=== PATIENT | female | born 1955 | race Native Hawaiian/Other Pacific Islander ===

== ENCOUNTER 2018-02-03 07:25 | Outpatient (CLI) | payer OTHER ==
--- NOTE | 2018-02-04 16:53 | MRI Report ---
Reason: R SHOULDER STRAIN Procedure Date: 02/03/2018 Accession Number: [id number] / [id number] Procedure: MRI - Shoulder RT W/O CPT Code: FULL RESULT: EXAM: RIGHT SHOULDER MRI WITHOUT CONTRAST EXAM DATE: 02/03/2018 09:02 AM. CLINICAL HISTORY: Right shoulder strain worsening after physical therapy. COMPARISON: None. TECHNIQUE: Multiplanar, multisequence T1-weighted and fluid-sensitive sequences of the shoulder without contrast. Other: None. FINDINGS: Acromioclavicular Region: The acromion is type II with anterior downsloping. The acromioclavicular joint is unremarkable. The coracoacromial and coracoclavicular ligaments are intact. A minimal amount of fluid is in the subacromial/subdeltoid bursa. Glenohumeral Region: No subluxation. No effusion or loose bodies. The articular cartilage is unremarkable. The glenohumeral ligaments and joint capsule are unremarkable. Bone Marrow: No fracture, marrow edema or bone lesions. Labrum: The labrum is unremarkable on this nonarthrographic study. Musculature/Rotator Cuff: The subscapularis tendon is unremarkable. The supraspinatus tendon has mild bursal sided irregularity and mild increased T2 signal. Infraspinatus and teres minor tendons are intact. No edema or fatty atrophy. Biceps Tendon: The long head of the biceps tendon and biceps bell are intact. Other: The subcutaneous tissues are unremarkable. IMPRESSION: 1. Minimal subacromial/subdeltoid bursitis. 2. Mild supraspinatus tendinosis. [facility] MUSCULOSKELETAL RADIOLOGY SECTION
== END 2018-02-03 07:26 | disposition home or self-care (01) ==
LOC: DI 07:25
PROVIDERS: ATTEND Family Medicine
DX: S46.911A Strain of unspecified muscle, fascia and tendon at shoulder and upper arm level, right arm, initial encounter (principal); M75.51 Bursitis of right shoulder; M67.813 Other specified disorders of tendon, right shoulder

== ENCOUNTER 2019-02-16 17:48 | Outpatient (CLI) | payer OTHER | END 2019-02-16 17:49 | disposition short-term general hospital (02) | LOC: EMS 17:48 | PROVIDERS: ATTEND Surgery | DX: R07.9 Chest pain, unspecified (principal) | CPT/HCPCS: A0425; A0427 ==

== ENCOUNTER 2019-12-10 08:43 | Outpatient (CLI) | payer OTHER | END 2019-12-10 08:44 | disposition critical access hospital (66) | LOC: EMS 08:43 | PROVIDERS: ATTEND Surgery | DX: R07.9 Chest pain, unspecified (principal); R20.0 Anesthesia of skin; R42 Dizziness and giddiness; R51.9 Headache, unspecified | CPT/HCPCS: A0425; A0427 ==

== ENCOUNTER 2019-12-10 08:56 | Emergency (ER) | payer OTHER ==
--- NOTE | 2019-12-10 09:21 | ED Physician Documentation ---
PD HPI CHEST PAIN - Stated complaint Stated Complaint: R ARM NUMBNESS - Chief complaint Chief Complaint: Cardiac - History obtained from History obtained from: Patient - History of Present Illness Timing - onset: How many hours ago (2), Today (this morning) Timing - onset during: Rest Timing - details: Abrupt onset (onset of pain right forearm, worse with gripping of hand, but starts in shoulder area. No chest pain, but was concerned about heart related.), Still present Quality: Aching, Pain Location: Right shoulder/arm. No: Substernal Radiation: Neck. No: Back Improved by: No: Rest Worsened by: Movement. No: Exertion, Inspiration Associated symptoms: Feeling faint / dizzy. No: Shortness of air, Diaphoresis, Nausea, Palpitations Similar symptoms before: Has not had sx before Recently seen: Clinic (seen by Cardiology few days ago and new Rx she started yesterday of Amlodipine and Imdur for symptoms of chest pressure intermittently (nonexertional)) Review of Systems Constitutional: denies: Fever, Chills Nose: denies: Rhinorrhea / runny nose, Congestion Throat: denies: Sore throat Cardiac: denies: Chest pain / pressure (just the right shoulder to forearm.), Palpitations Respiratory: denies: Dyspnea, Cough GI: denies: Abdominal Pain, Nausea, Vomiting Neurologic: denies: Focal weakness, Numbness, Headache PD PAST MEDICAL HISTORY - Past Medical History Cardiovascular: CT (had chest pain with elevated troponin last year, but nonocclusive vessels on heart cath. Rx with meds. 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 - Present Medications Home Medications: Ambulatory Orders Medication Instructions Recorded Confirmed ALPRAZolam [Alprazolam] 0.25 mg PO DAILY PRN 12/10/19 12/10/19 Escitalopram [Lexapro] 20 mg PO DAILY 12/10/19 12/10/19 Isosorbide Mononitrate ER [Imdur] 30 mg PO DAILY PM 12/10/19 12/10/19 Nitroglycerin 0.4 mg SL ONCE PRN 12/10/19 12/10/19 Propranolol HCl 20 mg PO QID 12/10/19 12/10/19 Trazodone HCl 50 mg PO DAILY PM 12/10/19 12/10/19 amLODIPine [Norvasc] 2.5 mg PO DAILY 12/10/19 12/10/19 - Allergies Allergies/Adverse Reactions: Allergies Allergy/AdvReac Type Severity Reaction Status Date / Time tramadol Allergy Anxiety Verified 12/10/19 09:01 PD ED PE NORMAL - Vitals Vital signs reviewed: Yes - General General: Alert and oriented X 3, Well developed/nourished, Other (appears in pain right forearm (was not in pain on arrival at time of first ECG, so repeated it now with pain in arm).) - Neck Neck: Supple, no meningeal sign, No bony TTP, No adenopathy - Cardiac Cardiac: RRR, Other (1/6 murmur anterior chest radiating to back. ) - Respiratory Respiratory: Clear bilaterally - Abdomen Abdomen: Soft, Non tender - Derm Derm: Normal color, Warm and dry - Extremities Extremities: No tenderness to palpate, Normal ROM s pain, No edema, No calf tenderness / cord, Other (right forearm and shoulder with some anterior shoulder tenderness but no limited ROM. Forearm itself is not tender. ) - Neuro Neuro: Alert and oriented X 3, No motor deficit, Normal speech Results - Vitals Vitals: Vital Signs - 24 hr 12/10/19 12/10/19 12/10/19 09:02 11:09 11:11 Temperature 37 C Heart Rate 60 60 61 Respiratory 18 15 11 L Rate Blood Pressure 194/84 H 171/65 H 171/65 H O2 Saturation 97 96 96 12/10/19 11:52 Temperature 37.2 C Heart Rate 63 Respiratory 18 Rate Blood Pressure 146/66 H O2 Saturation 100 Oxygen O2 Source Room air - EKG (time done) 09:05 Rate: Rate (enter#) (59) Rhythm: NSR [place]: Normal Intervals: Normal [place] QRS: Normal Ischemia: Normal ST segments. No: ST elevation c/w ischemia, ST depression 09:46 Rate: Rate (enter#) (59) Rhythm: NSR [place]: Normal Intervals: Normal [place] QRS: Normal Ischemia: Normal ST segments. No: ST elevation c/w ischemia, ST depression Compare to prior EKG: Unchanged from prior EKG - Labs Labs: Laboratory Tests 12/10/19 12/10/19 12/10/19 10:03 10:03 10:03 WBC 9.9 RBC 4.47 Hgb 13.5 Hct 41.3 MCV 92.4 MCH 30.2 MCHC 32.7 RDW 14.6 Plt Count 210 MPV 9.8 Neut # (Auto) 7.3 H Lymph # (Auto) 1.7 [place] # (Auto) 0.7 Eos # (Auto) 0.1 Baso # (Auto) 0.1 Absolute Nucleated RBC 0.00 Nucleated RBC % 0.0 Sodium 137 Potassium 4.0 Chloride 106 Carbon Dioxide 21 Anion Gap 10.0 BUN 11 Creatinine 0.7 Estimated GFR (MDRD) 84 L Glucose 108 H Calcium 9.1 Total Bilirubin 0.7 AST 15 ALT 11 Alkaline Phosphatase 96 Troponin I High Sens 5.1 Total Protein 7.3 Albumin 3.8 Globulin 3.5 Albumin/Globulin Ratio 1.1 Lipase 23 - Rads (name of study) chest xray Radiology: Prelim report reviewed (normal), See rad report PD MEDICAL DECISION MAKING - ED course Complexity details: considered differential, d/w patient Departure - Departure Disposition: 01 Home, Self Care Clinical Impression: Right arm pain Condition: Stable Record reviewed to determine appropriate education?: Yes Follow-Up: Conrad Adams DO [Primary Care Provider] - Chelsea Funez MD [Physician No Access] - Comments: No signs of heart attack or a heart cause of your pain. Presume more musculoskeletal. Consider using some naproxen or ibuprofen twice daily for the next several days. Add Tylenol if needed for pain. Regarding your new blood pressure medicines, I would hold off on the amlodipine and just take the Imdur as prescribed for now. You can add on the amlodipine a week from now or so. Check your blood pressures every day or 2 over the next week to make sure they do not get too low. Follow-up with your primary care. I did talk with Dr. Clark while this morning and he was reassured by your normal EKG and troponin blood test. Discharge Date/Time: 12/10/19 11:52
[2019-12-10] MEDS ORDERED: MORPHINE 2 MG/ML CARPUJECT IVP STA (09:48)
[2019-12-10 10:07] LABS: BASOPHILS # (AUTO) 0.1 10^3/uL (0.0-0.1); BASOPHILS % (AUTO) 0.5 %; EOSINOPHILS # (AUTO) 0.1 10^3/uL (0.0-0.7); EOSINOPHILS % (AUTO) 0.8 %; HGB - HEMOGLOBIN 13.5 g/dL (12.0-16.0); LYMPHOCYTES # (AUTO) 1.7 10^3/uL (1.5-3.5); LYMPHOCYTES % (AUTO) 17.6 %; MEAN CORPUSCULAR HEMOGLOBIN 30.2 pg (27.0-31.0); MEAN CORPUSCULAR HGB CONC 32.7 g/dL (32.0-36.0); MEAN CORPUSCULAR VOLUME 92.4 fL (81.0-99.0); MEAN PLATELET VOLUME 9.8 fL (7.9-10.8); MONOCYTES # (AUTO) 0.7 10^3/uL (0.0-1.0); MONOCYTES % (AUTO) 7.1 %; NEUTROPHILS # (AUTO) 7.3 10^3/uL (1.5-6.6); NEUTROPHILS % (AUTO) 73.6 %; PLT - PLATELET COUNT 210 10^3/uL (130-450); RED BLOOD COUNT 4.47 10^6/uL (4.20-5.40); RED CELL DISTRIBUTION WIDTH 14.6 % (12.0-15.0); WHITE BLOOD COUNT 9.9 x10^3/uL (4.8-10.8)
--- NOTE | 2019-12-10 10:13 | XRAY Report ---
PROCEDURE: Chest 1 View X-Ray INDICATIONS: Chest pain TECHNIQUE: One view of the chest was acquired. COMPARISON: None FINDINGS: Surgical changes and devices: None. Lungs and pleura: No pleural effusions or pneumothorax. Lungs are clear. Mediastinum: Mediastinal contours appear normal. Heart size is normal. Bones and chest wall: No suspicious bony lesions. Overlying soft tissues appear unremarkable. IMPRESSION: Normal chest radiographs. Reviewed by: Eugene Mckeon MD on 12/10/2019 10:12 AM PDT Approved by: Eugene Mckeon MD on 12/10/2019 10:12 AM PDT Station ID: [id number]
[2019-12-10 10:20] LABS: ALBUMIN 3.8 g/dL (3.2-5.5); ALBUMIN/GLOBULIN RATIO 1.1 (1.0-2.2); BILIRUBIN,TOTAL 0.7 mg/dL (0.2-1.0); CALCIUM 9.1 mg/dL (8.5-10.3); CREATININE 0.7 mg/dL (0.4-1.0); TOTAL PROTEIN 7.3 g/dL (6.7-8.2)
[2019-12-10] MEDS ORDERED: ACETAMINOPHEN 325 MG TABLET PO STA (11:05)
[2019-12-10 11:53] VITALS: BP 146/66
== END 2019-12-10 11:52 | disposition home or self-care (01) ==
LOC: EDUNIT# → ED 08:56
DX: M79.631 Pain in right forearm (principal); M25.511 Pain in right shoulder; R01.1 Cardiac murmur, unspecified; I25.2 Old myocardial infarction
CPT/HCPCS: 36415; 71045; 80053; 83690; 84484; 85025; 93005; 99284; A9270

== ENCOUNTER 2020-05-01 06:22 | Emergency (ER) | payer MEDICARE, OTHER ==
[2020-05-01 07:41] LABS: BASOPHILS % (AUTO) 0.5 %; EOSINOPHILS # (AUTO) 0.1 10^3/uL (0.0-0.7); EOSINOPHILS % (AUTO) 1.3 %; HCT - HEMATOCRIT 40.5 % (37.0-47.0); HGB - HEMOGLOBIN 13.4 g/dL (12.0-16.0); LYMPHOCYTES # (AUTO) 2.3 10^3/uL (1.5-3.5); LYMPHOCYTES % (AUTO) 31.5 %; MEAN CORPUSCULAR HEMOGLOBIN 30.6 pg (27.0-31.0); MEAN CORPUSCULAR HGB CONC 33.1 g/dL (32.0-36.0); MEAN CORPUSCULAR VOLUME 92.5 fL (81.0-99.0); MEAN PLATELET VOLUME 10.4 fL (7.9-10.8); MONOCYTES # (AUTO) 0.6 10^3/uL (0.0-1.0); MONOCYTES % (AUTO) 8.3 %; NEUTROPHILS # (AUTO) 4.3 10^3/uL (1.5-6.6); PLT - PLATELET COUNT 211 10^3/uL (130-450); RED BLOOD COUNT 4.38 10^6/uL (4.20-5.40); RED CELL DISTRIBUTION WIDTH 14.1 % (12.0-15.0); WHITE BLOOD COUNT 7.4 x10^3/uL (4.8-10.8)
[2020-05-01 07:57] LABS: BILIRUBIN,URINE NEGATIVE (NEGATIVE); GLUCOSE, URINE (UA) NEGATIVE (NEGATIVE); KETONES,URINE (UA) NEGATIVE (NEGATIVE); LEUKOCYTE ESTERASE, URINE SMALL (NEGATIVE); NITRITE,URINE NEGATIVE (NEGATIVE); OCCULT BLOOD,URINE SMALL (NEGATIVE); PH,URINE 7.5 PH (5.0-7.5); PROTEIN,URINE NEGATIVE (NEGATIVE); UROBILINOGEN,URINE 0.2 (NORMAL) E.U./dL (NORMAL)
[2020-05-01 07:57] LABS: ALBUMIN 3.7 g/dL (3.2-5.5); ALBUMIN/GLOBULIN RATIO 1.1 (1.0-2.2); BILIRUBIN,TOTAL 0.6 mg/dL (0.2-1.0); CREATININE 0.7 mg/dL (0.4-1.0); POTASSIUM 3.7 mmol/L (3.5-5.0); TOTAL PROTEIN 7.2 g/dL (6.7-8.2)
[2020-05-01 08:02] LABS: CLARITY,URINE CLEAR (CLEAR)
[2020-05-01 08:24] LABS: BACTERIA,URINE Rare /HPF (None Seen); RBC,URINE 0-5 /HPF (0-5); SQUAMOUS EPITHELIAL CELL,UR FEW Squamous (<= Few); WBC,URINE 0-3 /HPF (0-5)
--- NOTE | 2020-05-01 08:34 | ED Physician Documentation ---
PD HPI CHEST PAIN - Stated complaint Stated Complaint: CHEST PX/HIGH BP - Chief complaint Chief Complaint: Cardiac - History obtained from History obtained from: Patient - History of Present Illness Pain level max: 2 Pain level now: 0 Associated symptoms: Palpitations. No: Nausea, Vomiting, Feeling faint / dizzy, General Weakness Recently seen: Not recently seen - Additional information Additional information: 65-year-old female presents to the emergency department with chest pain i ntermittently for the last week. Does not seem to be related to exertion. Nothing makes it better or worse. Normally lasts for a few minutes at a time. No nausea or vomiting. No feeling faint or dizzy. She states it feels like a fluttering and sometimes a band. Nonradiating. It is across the anterior aspect of her chest. Patient states that she had a normal coronary angiogram within the last year. 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 She states that since that time she has had these symptoms intermittently. Patient states that she has been taking her usual medications. No fever. No cough. No recent travel. Review of Systems Ten Systems: 10 systems reviewed and negative Constitutional: denies: Fever Ears: denies: Ear pain Nose: denies: Rhinorrhea / runny nose, Congestion Throat: denies: Sore throat Cardiac: denies: Calf pain Respiratory: denies: Dyspnea, Cough, Hemoptysis, Wheezing GI: denies: Abdominal Pain, Nausea, Vomiting, Diarrhea Skin: denies: Rash Musculoskeletal: denies: Neck pain, Back pain Neurologic: denies: Headache PD PAST MEDICAL HISTORY - Past Medical History Past Medical History: Yes Cardiovascular: MS, Murmur Respiratory: None Neuro: None Endocrine/Autoimmune: None, HyPERthyroidism Psych: None Musculoskeletal: None - 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 - Present Medications Home Medications: Ambulatory Orders Medication Instructions Recorded Confirmed ALPRAZolam [Alprazolam] 0.25 mg PO DAILY PRN 12/10/19 12/10/19 Escitalopram [Lexapro] 20 mg PO DAILY 12/10/19 12/10/19 Isosorbide Mononitrate ER [Imdur] 30 mg PO DAILY PM 12/10/19 12/10/19 Nitroglycerin 0.4 mg SL ONCE PRN 12/10/19 12/10/19 Propranolol HCl 20 mg PO QID 12/10/19 12/10/19 Trazodone HCl 50 mg PO DAILY PM 12/10/19 12/10/19 amLODIPine [Norvasc] 2.5 mg PO DAILY 12/10/19 12/10/19 - Allergies Allergies/Adverse Reactions: Allergies Allergy/AdvReac Type Severity Reaction Status Date / Time methimazole Allergy Unknown Verified 05/01/20 06:38 tramadol Allergy Anxiety Verified 05/01/20 06:38 - Social History Does the pt smoke?: No Smoking Status: Never smoker PD ED PE NORMAL - Vitals Vital signs reviewed: Yes - General General: Alert and oriented X 3, No acute distress, Well developed/nourished - HEENT HEENT: PERRL, Moist mucous membranes - Neck Neck: Supple, no meningeal sign - Cardiac Cardiac: RRR, Strong equal pulses - Respiratory Respiratory: No respiratory distress, Clear bilaterally - Abdomen Abdomen: Soft, Non tender, Non distended - Derm Derm: Warm and dry - Extremities Extremities: No edema, No calf tenderness / cord - Neuro Neuro: Alert and oriented X 3 - Psych Psych: Normal mood, Normal affect Results - Vitals Vitals: Vital Signs - 24 hr 05/01/20 05/01/20 05/01/20 06:34 06:38 08:46 Temperature 98.7 C H 36.9 C Heart Rate 66 61 Respiratory 17 16 Rate Blood Pressure 151/82 H 150/64 H O2 Saturation 97 97 Oxygen O2 Source Room air - EKG (time done) 0626 Rate: Rate (enter#) (59) Rhythm: NSR [place]: Normal Intervals: Normal [place] QRS: Normal Ischemia: Normal ST segments Computer interpretation: Agree with computer - Labs Labs: Laboratory Tests 05/01/20 05/01/20 05/01/20 07:21 07:25 07:25 WBC 7.4 RBC 4.38 Hgb 13.4 Hct 40.5 MCV 92.5 MCH 30.6 MCHC 33.1 RDW 14.1 Plt Count 211 MPV 10.4 Neut # (Auto) 4.3 Lymph # (Auto) 2.3 [place] # (Auto) 0.6 Eos # (Auto) 0.1 Baso # (Auto) 0.0 Absolute Nucleated RBC 0.00 Nucleated RBC % 0.0 Sodium 137 Potassium 3.7 Chloride 103 Carbon Dioxide 23 Anion Gap 11.0 BUN 13 Creatinine 0.7 Estimated GFR (MDRD) 84 L Glucose 106 H Calcium 9.0 Total Bilirubin 0.6 AST 17 ALT 11 Alkaline Phosphatase 93 Troponin I High Sens Total Protein 7.2 Albumin 3.7 Globulin 3.5 Albumin/Globulin Ratio 1.1 Lipase 22 Urine Color YELLOW Urine Clarity CLEAR Urine pH 7.5 Ur Specific [place] 1.015 Urine Protein NEGATIVE Urine Glucose (UA) NEGATIVE Urine Ketones NEGATIVE Urine Occult Blood SMALL H Urine Nitrite NEGATIVE Urine Bilirubin NEGATIVE Urine Urobilinogen 0.2 (NORMAL) Ur Leukocyte Esterase SMALL H Urine RBC 0-5 Urine WBC 0-3 Ur Squamous Epith Cells FEW Squamous Urine Bacteria Rare Ur Microscopic Review INDICATED Urine Culture Comments INDICATED 05/01/20 07:25 WBC RBC Hgb Hct MCV MCH MCHC RDW Plt Count MPV Neut # (Auto) Lymph # (Auto) [place] # (Auto) Eos # (Auto) Baso # (Auto) Absolute Nucleated RBC Nucleated RBC % Sodium Potassium Chloride Carbon Dioxide Anion Gap BUN Creatinine Estimated GFR (MDRD) Glucose Calcium Total Bilirubin AST ALT Alkaline Phosphatase Troponin I High Sens 7.1 Total Protein Albumin Globulin Albumin/Globulin Ratio Lipase Urine Color Urine Clarity Urine pH Ur Specific [place] Urine Protein Urine Glucose (UA) Urine Ketones Urine Occult Blood Urine Nitrite Urine Bilirubin Urine Urobilinogen Ur Leukocyte Esterase Urine RBC Urine WBC Ur Squamous Epith Cells Urine Bacteria Ur Microscopic Review Urine Culture Comments - Rads (name of study) cxr Radiology: Prelim report reviewed, EMP read contemporaneously, See rad report (No acute pulmonary process. ) PD MEDICAL DECISION MAKING - ED course Complexity details: reviewed results, re-evaluated patient, considered differential (No ST elevation MS, no aortic dissection, no PE, no tension pneumothorax, no aortic aneurysm), d/w patient ED course: Patient is a 65-year-old female with intermittent chest pain for 1 week. Asymptomatic here. Nothing makes it better or worse. Patient is well- appearing, nontoxic. Afebrile. No evidence of PE, aortic dissection, pneumothorax. No acute findings on EKG, telemetry, laboratory testing. We will have her follow-up with her doctor for further care. Normal coronary angiogram within the last 12 months per patient. Patient counseled regarding signs and symptoms for which I believe and urgent re-evaluation would be necessary. Patient with good understanding of and agreement to plan and is comfortable going home at this time This document was made in part using voice recognition software. While efforts are made to proofread this document, sound alike and grammatical errors may occur. Departure - Departure Disposition: 01 Home, Self Care Clinical Impression: Chest pain Qualifiers: Chest pain type: unspecified Qualified Code(s): R07.9 - Chest pain, unspecified Condition: Good Instructions: ED Chest Pain Atypical Unkn Cause Follow-Up: Dashawn Corona MD [Primary Care Provider] - Within 3 Days Comments: The cause of your symptoms is unclear today. Please follow-up with your doctor for further care. Continue your current medications. Your heart test do not show a heart attack within the last week. Return if you worsen Discharge Date/Time: 05/01/20 08:49
[2020-05-01 08:47] VITALS: BP 150/64
--- NOTE | 2020-05-01 09:00 | XRAY Report ---
PROCEDURE: Chest 1 View X-Ray INDICATIONS: chest pain TECHNIQUE: One view of the chest was acquired. COMPARISON: Chest x-ray 12/10/2019 FINDINGS: Surgical changes and devices: None. Lungs and pleura: No pleural effusions or pneumothorax. Lungs are clear. Mediastinum: Mediastinal contours appear normal. Heart size is at the upper limits of normal in siz e. Bones and chest wall: No suspicious bony lesions. Overlying soft tissues appear unremarkable. IMPRESSION: No acute pulmonary process. Reviewed by: Opal Chu MD on 05/01/2020 8:59 AM [facility] Approved by: Opal Chu MD on 05/01/2020 8:59 AM [facility] Station ID: [id number]
== END 2020-05-01 08:49 | disposition home or self-care (01) ==
LOC: ED 06:22
DX: R07.9 Chest pain, unspecified (principal)
CPT/HCPCS: 36415; 80053; 81001; 81003; 83690; 84484; 85025; 87086; 93005; 99284

== ENCOUNTER 2020-06-22 10:14 | Outpatient (CLI) | payer MEDICARE, OTHER ==
[2020-06-24] VITALS: BP 143/70
--- NOTE | 2020-06-24 00:01 | SLEEP CARE CONSULTATION ---
Information from patient questionnaire entered by Abhijeet Dodson. I have reviewed and concur with the information entered by Abhijeet Dodson. This document represents the service I personally performed and the decisions made by me, Carmen Olmstead MD, [facility]. History of Present Illness Service Date and Time: 06/22/2020 1014 Reason for Visit: New patient, sleep apnea on CPAP therapy Chief Complaint: reports: Other (Sleep apnea) Date of Onset: 20 + years Usual bedtime: 7-8 Time it takes to fall asleep: Not sure I'm asleep Snores at night: No Observed to quit breathing while asleep: No Sleeps alone due to snoring: No Reasons for waking at night: reports: Bathroom, Other (For my brain to tell my body to breathe) Toss, Turn, or Twitch while sleeping: No Recalls having dreams: No Usually gets out of bed at: 6-7 AM Feels refreshed in the morning: No Morning headache: No Sleepy or fatigued during the day: Yes Ever fallen asleep while driving: No Takes day naps: Yes Dreams during day naps: No Prior sleep studies: Yes Year and Where: December 2019 and February 2020 in [place] Additional HPI information: I had the pleasure of seeing Ms. Mcdermott today regarding obstructive sleep apnea- hypopnea. As you know, she is a 65 year old gentleman who was diagnosed with the sleep-disordered breathing at [facility] in 01/2020. The AHI was 5.4. She was prescribed a CPAP device set at 10 13 cm. She uses the ResMed AirSense 10 device every night and all night. The compliance data show usage in 30 out of the 30 nights between 04/10 and 05/09/2020, averaging 7.1 hours a night. The residual AHI is 3.3 and average air leak is 5 L/minute. She initially was fitted with a ResMed F30i full face mask size SW. However, the durable medical supplier has not been able to get her the same mask. She was sent Respironics DreamWear full face mask, ResMed AirTouch F-20 full face mask, and Respironics DreamWear nasal cushion mask, none of the fitting correctly. [facility] is her supplier. She finds the treatment beneficial when she could use the device all night. She also complains of insomnia where she lies awake for about 4 hours a night. She takes trazodone around 6 pm to go to sleep between 7 8 am. She does not get out of bed until 6 7 am. 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 Patient is and lives in [place]. Have you smoked in the past 12 months: No Alcohol use: Yes Alcohol amount and frequency: 2-3 glasses a week Caffeine use: No Allergies and Home Medications Drug allergies reviewed: Yes Home medication list reviewed: Yes Review of Systems Weight gain over past 5 years: 30 Cardiovascular: denies: high blood pressure, palpitations, chest pain, irregular heart rate or pulse, leg or foot swelling, have to sleep sitting up, other Respiratory: denies: shortness of breath, wheeze, sputum production, chronic co ugh, other Gastrointestinal: denies: heartburn, difficulty swallowing, nausea, vomitting, diarrhea, abdominal pain, other Urinary: denies: incontinence, frequency, urgency, impotence, other Neurological: denies: headaches, seizure, head trauma, disorientation, speech dysfunction, gait or balance problems, fainting or unconsciousness, other Physical Exam Blood Pressure: 143/70 Cuff size: regular Heart Rate: 67 O2 Saturation: 97 Height: 5 ft 5 in Weight: 180 lb Body Mass Index: 29.9 BMI Classification: Overweight Neck circumference: 14.5 Mood/affect: tenisha HEENT: No craniofacial malformation Impression and Plan IMPRESSION: 1. Obstructive Sleep Apnea-Hypopnea Syndrome, mild as previously diagnosed. The patient has good treatment compliance. The current pressure setting appears effective and comfortable. The patient is uncomfortable with her present mask. I showed her several other styles. She is interested in nasal pillows. She would like to switch durable medical supplier. 2. Insomnia, due to excessive time spent in bed of 12 hours a night. The patient was advised to limit time spent in bed to not more than 8 hours. Plan: 1. Prescription made for supplies specifying nasal pillows. 2. Avoid long distance driving or when feeling sleepy. 3. Avoid alcohol, sedative and muscle relaxant around bedtime. 4. Maintain a regular wake up time and spend no more than 8 hours in bed at night. Avoid naps. Visit Type: In Office Time Spent with Patient (minutes): 30 Provider Statement: I spent 100% of the Face to Face Visit with the patient with greater than 50% spent counseling the patient and coordination of care.
== END 2020-06-22 10:15 | disposition home or self-care (01) ==
LOC: SC 10:14
PROVIDERS: ATTEND Internal Medicine Pulmonary Disease
DX: G47.33 Obstructive sleep apnea (adult) (pediatric) (principal); E66.3 Overweight; Z68.29 Body mass index [BMI] 29.0-29.9, adult
CPT/HCPCS: 99202; G0463; 99212

== ENCOUNTER 2020-08-03 09:05 | Outpatient (CLI) | payer MEDICARE, OTHER ==
--- NOTE | 2020-08-12 11:56 | SLEEP CARE CONSULTATION ---
Information from patient questionnaire entered by Rivka Kovacs. I have reviewed and concur with the information entered by Rivka Kovacs. This document represents the service I personally performed and the decisions made by me, Carmen Olmstead MD, [facility]. History of Present Illness Service Date and Time: 08/03/2020904 Previous diagnosis: Mild, Obstructive Sleep Apnea-Hypopnea Syndrome AHI: 5.4 (in 2019) Reason for follow up: other (6 week ) Equipment type: CPAP Equipment obtained from: [employer] Mask style: Nasal Prior sleep studies: Yes Year and Where: [address] [place] [address] Sleep HPI additional information: HPI: Ms. Mcdermott returned today for follow up of nasal CPAP therapy. She was diagnosed to have very mild obstructive sleep apnea-hypopnea syndrome. The patient went to [facility] for the equipment and was fitted with a nasal mask (she is not certain which kind but a month ago she had me order her the ResMed P30i nasal pillows which she has not received).. She reports using the device occasionally and not all through the night. The compliance report shows usage in 24 nights out of the past 42 nights, averaging 3.5 hours a night. She complained of her mask not fitting right but no particular problem with the device such as soreness on the face, dry nose, epistaxis, nasal congestion or headache. She thinks that the pressure of 10 - 16 cmH2O is comfortable. On the CPAP therapy she notices improvement in her sleep quality, and that she wakes up feeling fresher in the morning and more awake/alert during the day. The [place] Sleepiness Scale score 11. Her notices no snore at all. The average residual AHI is 4.4; and air leak, 0.4 L/min. The 90th percentile pressure is 11.9 cmH2O. CPAP Compliance Data - Data Reviewed with Patient Average duration of nightly device use: 3 hr 29 min Compliance rate %: 14 (42 days) Current pressure setting (cmH2O): 10-16 Humidity settin Average residual AHI: 4.4 Subjective Missed days of use due to: reports: other (didn't get mask) Initial [place] Sleepiness Scale score: 5 (in 2020) Current [place] Sleepiness Scale score: 11 Allergies and Home Medications Drug allergies reviewed: Yes Home medication list reviewed: Yes Review of Systems Review of systems same as previous: Yes Physical Exam Height: 5 ft 5 in Weight: 180 lb Body Mass Index: 29.9 BMI Classification: Overweight Impression and Plan IMPRESSION: 1. Obstructive Sleep Apnea-Hypopnea Syndrome, very mild (AHI was 5.4 at [facility]), with the patient having [id number] compliance due to mask not fitting well. The current pressure appears effective and comfortable. Overall, she is very satisfied with treatment and plans to contin ue with it long-term. The patient continue to wait for [facility] to send her the prescribed mask.. PLAN: 1. Continue with nasal CPAP therapy with 10 - 16 cmH2O. 2. Try to lose some weight 3. A copy of the prescription for P30i nasal pillows given to her. 4. Return in one year for follow up or earlier if there is any problem with the treatment. Visit Type: In Office Time Spent with Patient (minutes): 15 Provider Statement: I spent 100% of the Face to Face Visit with the patient with greater than 50% spent counseling the patient and coordination of care.
== END 2020-08-03 09:06 | disposition home or self-care (01) ==
LOC: SC 09:05
PROVIDERS: ATTEND Internal Medicine Pulmonary Disease
DX: G47.33 Obstructive sleep apnea (adult) (pediatric) (principal); E66.3 Overweight; Z68.29 Body mass index [BMI] 29.0-29.9, adult
CPT/HCPCS: 99212; G0463

== ENCOUNTER 2020-11-17 13:24 | Outpatient (CLI) | payer MEDICARE, OTHER ==
[2020-11-17 15:09] VITALS: BP 128/77
--- NOTE | 2020-11-17 15:09 | SLEEP CARE CONSULTATION ---
Information from patient questionnaire entered by Yovana Wilkinson. I have reviewed and concur with the information entered by Yovana Wilkinson. This document represents the service I personally performed and the decisions made by me, Mady Monteiro ARNP. History of Present Illness Service Date and Time: 11/17/2020 1324 Previous diagnosis: Mild, Obstructive Sleep Apnea-Hypopnea Syndrome AHI: 5.4 (in 2019) Reason for follow up: three month (with mask issues) Equipment type: CPAP Equipment obtained from: [employer] (getting supplies as needed) Mask style: Nasal pillows Mask brand: Resmed Backup mask available: Yes (other mask) Prior sleep studies: Yes Year and Where: [address] [place] [address] Sleep Type of Sleep Study: Polysomnography HPI additional information: ANTHONY ENCINAS was diagnosed to have mild, AHI 5.4, obstructive sleep apnea- hypopnea syndrome and returned today for CPAP therapy three month, mask issues follow-up. Sleep Study - Results Prior sleep studies: Yes Year and Where: [address] [place] [address] Sleep CPAP Compliance Data - Data Reviewed with Patient Average duration of nightly device use: 6 hours 38 minutes Compliance rate %: 78 Current pressure setting (cmH2O): 13-18 Average residual AHI: 5.7 Central apnea: 1 Obstructive apnea: 4.4 Hypopnea: .1 Subjective Missed days of use due to: reports: travel Patient concerns: reports: mask discomfort (nasal pillows cause sore in nostrils and don't stay in; hard to breath in), dry mouth, nose, throat, other (mask fit issues). denies: aerophagia, air blowing in eyes, mask leak noise, condensation in mask/hose, nasal congestion, epistaxis Observed to snore while using device: No Current pressure setting perceived as: too low On therapy, patient: reports: sleeping better, awakening more refreshed, being more awake and alert during the day, more rested overall. denies: drowsiness while driving Initial [place] Sleepiness Scale score: 5 (in 2020) Current [place] Sleepiness Scale score: 10 Allergies and Home Medications Home medication list reviewed: Yes Allergy and home medication list: sertraline amlodipine gabapentin Review of Systems Review of systems same as previous: Yes (no changes) Physical Exam Blood Pressure: 128/77 Cuff size: wrist Heart Rate: 102 O2 Saturation: 92 Height: 5 ft 5 in Weight: 160 lb Body Mass Index: 26.6 BMI Classification: Overweight Impression and Plan 1. Obstructive Sleep Apnea-Hypopnea Syndrome, mild, with good treatment compliance and fair apnea control with minimally elevated residual AHI. On CPAP therapy, the patient has better sleep quality and is more rested overall. Patient feels the pressure is a little too low with her current mask. She feels like she cannot breathe very well in the mask. She is using a nasal pillows mask and would like to try something different. The patients pressure will be changed to autoCPAP 14-18 cmH20 for elevation of residual AHI. Patient advised to contact me if pressure change is uncomfortable so that it can be adjusted. Goals for apnea control discussed. I will write for mask refitting. We discussed and I showed her several options and feel that she should try the DreamWear wisp or possibly the F&P Brevida with ear loops as good options for a more comfortable fit. She has had more nose and mouth dryness. She does not feel a fullface mask is comfortable and leaks more when she is on her sides. I encouraged her to try a CPAP pillow that is made for her side sleepers to help reduce dislodging of the mask. Oral dryness can be reduced by adjusting humidity setting higher or heated hose lower or by adjusting both settings. Verbal instructions given on how to change humidity and heated hose settings with rationale explaining why to change. Patient's apnea severity and rationale for treatment to reduce apnea, improve sleep quality and reduce cardiovascular and cerebrovascular events was reviewed. I also reviewed the benefit of consistent device use of CPAP for cardiac disease ([place] 2019), depression and anxiety. * Mask refitting to try Dreamwear Wisp or F&P Brevida with ear loops * Change auto CPAP pressure to 14-18 cmH2O * Notify me if snoring with mask or feeling that the pressure is too much or too little * Attempt to lose weight * Call this office if any problems using CPAP * Return for follow up in 1-2 months, or sooner if concerns arise Counseling Topics: Spare mask, Weight loss health impact Visit Type: In Office Time Spent with Patient (minutes): 31 Provider Statement: I spent 100% of the Face to Face Visit with the patient with greater than 50% spent counseling the patient and coordination of care.
== END 2020-11-17 13:25 | disposition home or self-care (01) ==
LOC: SC 13:24
PROVIDERS: ATTEND Nurse Practitioner Family
DX: G47.33 Obstructive sleep apnea (adult) (pediatric) (principal); E66.3 Overweight; Z68.26 Body mass index [BMI] 26.0-26.9, adult
CPT/HCPCS: 99213; G0463; 99212

== ENCOUNTER 2021-02-15 13:41 | Emergency (ER) | payer MEDICARE, OTHER ==
--- NOTE | 2021-02-15 14:06 | XRAY Report ---
PROCEDURE: Chest 1 View X-Ray INDICATIONS: Chest Pain TECHNIQUE: One view of the chest was acquired. COMPARISON: 05/01/2020 FINDINGS: Surgical changes and devices: None. Lungs and pleura: No pleural effusions or pneumothorax. Lungs are clear. Mediastinum: Mediastinal contours appear normal. Heart size is normal. Bones and chest wall: No suspicious bony lesions. Overlying soft tissues appear unremarkable. IMPRESSION: No acute cardiopulmonary disease. Reviewed by: Chastity Mancera MD on 02/15/2021 2:05 PM PST Approved by: Chastity Mancera MD on 02/15/2021 2:05 PM PST Station ID: [id number]
[2021-02-15 14:08] LABS: BASOPHILS % (AUTO) 0.5 %; EOSINOPHILS # (AUTO) 0.1 10^3/uL (0.0-0.7); EOSINOPHILS % (AUTO) 1.2 %; LYMPHOCYTES # (AUTO) 3.4 10^3/uL (1.5-3.5); LYMPHOCYTES % (AUTO) 38.6 %; MEAN CORPUSCULAR HEMOGLOBIN 29.6 pg (27.0-31.0); MEAN CORPUSCULAR HGB CONC 32.6 g/dL (32.0-36.0); MEAN CORPUSCULAR VOLUME 90.9 fL (81.0-99.0); MEAN PLATELET VOLUME 9.8 fL (7.9-10.8); MONOCYTES # (AUTO) 0.8 10^3/uL (0.0-1.0); MONOCYTES % (AUTO) 8.5 %; NEUTROPHILS # (AUTO) 4.5 10^3/uL (1.5-6.6); NEUTROPHILS % (AUTO) 50.7 %; PLT - PLATELET COUNT 237 10^3/uL (130-450); RED BLOOD COUNT 4.73 10^6/uL (4.20-5.40); RED CELL DISTRIBUTION WIDTH 15.8 % (12.0-15.0); WHITE BLOOD COUNT 8.8 x10^3/uL (4.8-10.8)
[2021-02-15 14:21] LABS: ALBUMIN 4.1 g/dL (3.2-5.5); ALBUMIN/GLOBULIN RATIO 1.1 (1.0-2.2); BILIRUBIN,TOTAL 0.6 mg/dL (0.2-1.0); CALCIUM 9.8 mg/dL (8.5-10.3); CREATININE 0.7 mg/dL (0.4-1.0); POTASSIUM 4.1 mmol/L (3.5-5.0)
[2021-02-15] MEDS ORDERED: ALBUTEROL 1 PUFF INH STA (15:10)
--- NOTE | 2021-02-15 15:17 | ED Physician Documentation ---
PD HPI CHEST PAIN - Stated complaint Stated Complaint: CHEST PX - Chief complaint Chief Complaint: Cardiac - History obtained from History obtained from: Patient - History of Present Illness Timing - onset: Today Timing - onset during: Rest Pain level max: 3 Pain level now: 0 Quality: Sharp Location: Left chest Radiation: No: Jaw, Neck, Back, Abdominal, Left upper extremity, Right upper extremity Improved by: Nothing Worsened by: Other (Nothing) Associated symptoms: No: Shortness of air, Diaphoresis, Nausea, Vomiting, Feeling faint / dizzy, General Weakness, Palpitations, Cough - Additional information Additional information: Patient is a 66-year-old female who presents to the emergency department with several months of intermittent left-sided chest pain. She describes it as being in one spot and as sharp. It lasts for usually 1 to 2 seconds at a time, but today it lasted for about a minute. Nothing makes it better or worse. She sees Dr. Funez, cardiology at [facility]. Patient states that she has a history of Takotsubo cardiomyopathy. She had a cardiac catheterization in January 2019 which showed no significant coronary artery disease. She initially had wall motion abnormalities on echo, but these resolved. Patient states that she contacted her breakfast manager today who referred her here for evalu ation. Patient is currently asymptomatic. No recent travel. No history of blood clots. No leg swelling. No recent surgeries. 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 - Present Medications Home Medications: Ambulatory Orders Medication Instructions Recorded Confirmed ALPRAZolam [Alprazolam] 0.25 mg PO DAILY PRN 12/10/19 12/10/19 Escitalopram [Lexapro] 20 mg PO DAILY 12/10/19 12/10/19 Isosorbide Mononitrate ER [Imdur] 30 mg PO DAILY PM 12/10/19 12/10/19 Nitroglycerin 0.4 mg SL ONCE PRN 12/10/19 12/10/19 Propranolol HCl 20 mg PO QID 12/10/19 12/10/19 Trazodone HCl 50 mg PO DAILY PM 12/10/19 12/10/19 amLODIPine [Norvasc] 2.5 mg PO DAILY 12/10/19 12/10/19 Albuterol Sulf [Ventolin Hfa 1 - 2 puffs INH Q4HR PRN #1 inhaler 02/15/21 Inhaler] - Allergies Allergies/Adverse Reactions: Allergies Allergy/AdvReac Type Severity Reaction Status Date / Time methimazole Allergy Unknown Verified 02/15/21 13:48 tramadol Allergy Anxiety Verified 02/15/21 13:48 - Social History Does the pt smoke?: No Smoking Status: Never smoker PD ED PE NORMAL - Vitals Vital signs reviewed: Yes - General General: Alert and oriented X 3, No acute distress - HEENT HEENT: PERRL - Neck Neck: Supple, no meningeal sign, No adenopathy, No JVD, No bruit - Cardiac Cardiac: RRR, No murmur - Respiratory Respiratory: No respiratory distress, Other (mild wheeze B) - Abdomen Abdomen: Soft, Non tender, Non distended - Derm Derm: Warm and dry - Extremities Extremities: No edema, No calf tenderness / cord - Neuro Neuro: Alert and oriented X 3 - Psych Psych: Normal mood, Normal affect Results - Vitals Vitals: Vital Signs - 24 hr 02/15/21 02/15/21 02/15/21 13:48 15:36 15:50 Temperature 36.4 C L Heart Rate 84 65 78 Respiratory 18 16 18 Rate Blood Pressure 133/64 H 142/86 H O2 Saturation 97 99 Oxygen O2 Source Room air - EKG (time done) 1346 Rate: Rate (enter#) (72) Rhythm: NSR [place]: Normal Intervals: Normal MD QRS: Normal Ischemia: Other (mild ST depression) Compare to prior EKG: Unchanged from prior EKG (03/04/2020 Mitra) - Labs Labs: Laboratory Tests 02/15/21 02/15/21 02/15/21 14:02 14:02 14:02 WBC 8.8 RBC 4.73 Hgb 14.0 Hct 43.0 MCV 90.9 MCH 29.6 MCHC 32.6 RDW 15.8 H Plt Count 237 MPV 9.8 Neut # (Auto) 4.5 Lymph # (Auto) 3.4 [place] # (Auto) 0.8 Eos # (Auto) 0.1 Baso # (Auto) 0.0 Absolute Nucleated RBC 0.00 Nucleated RBC % 0.0 Sodium 142 Potassium 4.1 Chloride 105 Carbon Dioxide 26 Anion Gap 11.0 BUN 14 Creatinine 0.7 Estimated GFR (MDRD) 84 L Glucose 94 Calcium 9.8 Total Bilirubin 0.6 AST 19 ALT 14 Alkaline Phosphatase 117 Troponin I High Sens 6.2 Total Protein 8.0 Albumin 4.1 Globulin 3.9 Albumin/Globulin Ratio 1.1 Lipase 27 - Rads (name of study) cxr Radiology: Final report received (No acute cardiopulmonary disease. ), EMP read contemporaneously PD MEDICAL DECISION MAKING - ED course Complexity details: reviewed results, re-evaluated patient, considered differential (No ST elevation PR, no aortic dissection, no PE, no tension pneumothorax, no aortic aneurysm), d/w patient ED course: Patient is a 66-year-old female with atypical chest pain. Lasts for only a few seconds at a time, sometimes up to a minute. She did feel better after albuterol inhaler. We will have her follow-up with her breakfast manager for further care. Patient counseled regarding signs and symptoms for which I believe and urgent re-evaluation would be necessary. Patient with good understanding of and agreement to plan and is comfortable going home at this time This document was made in part using voice recognition software. While efforts are made to proofread this document, sound alike and grammatical errors may occur. Departure - Departure Disposition: 01 Home, Self Care Clinical Impression: Chest pain Qualifiers: Chest pain type: unspecified Qualified Code(s): R07.9 - Chest pain, unspecified Condition: Good Instructions: ED Chest Pain Atypical Unkn Cause Follow-Up: Kylee Silver MD [Primary Care Provider] - Within 1 week Prescriptions: Albuterol Sulf [Ventolin Hfa Inhaler] 1 - 2 puffs INH Q4HR PRN #1 inhaler PRN Reason: Shortness Of Air/Wheezing Comments: Your inhaler was sent to [facility]. We will see if this improves her symptoms. Please follow-up with your doctor for further care. Your testing today does not show any acute abnormalities. Discharge Date/Time: 02/15/21 15:56
[2021-02-15 15:55] VITALS: BP 142/86
== END 2021-02-15 15:56 | disposition home or self-care (01) ==
LOC: ED 13:41
DX: R07.9 Chest pain, unspecified (principal); R06.2 Wheezing
CPT/HCPCS: 36415; 80053; 83690; 84484; 85025; 93005; 94640; 94664; 99284

== ENCOUNTER 2021-04-05 10:40 | Outpatient (CLI) | payer MEDICARE, OTHER | END 2021-04-05 10:41 | disposition home or self-care (01) | LOC: RT 10:40 | PROVIDERS: ATTEND Internal Medicine | DX: R06.2 Wheezing (principal) | CPT/HCPCS: 94010 ==

== ENCOUNTER 2021-04-23 07:15 | Outpatient (CLI) | payer MEDICARE, OTHER ==
--- NOTE | 2021-04-23 13:31 | XRAY Report ---
PROCEDURE: Knee 3 View RT INDICATIONS: RIGHT KNEE PAIN TECHNIQUE: 3 views of the right knee(s) were acquired. COMPARISON: None. FINDINGS: Bones: No acute fractures or dislocations. No suspicious bony lesions. Soft tissues: Small joint effusion. No suspicious soft tissue calcifications. IMPRESSION: Right knee without acute osseous abnormalities or malalignment. Small joint effusion. Reviewed by: Luis Hollis MD on 04/23/2021 12:29 PM [facility] Approved by: Luis Hollis MD on 04/23/2021 12:29 PM [facility] Station ID: [id number]
== END 2021-04-23 07:16 | disposition home or self-care (01) ==
LOC: DI 07:15
PROVIDERS: ATTEND Internal Medicine
DX: M25.561 Pain in right knee (principal); M25.461 Effusion, right knee

== ENCOUNTER 2021-05-04 09:22 | Outpatient (CLI) | payer MEDICARE, OTHER ==
--- NOTE | 2021-05-05 08:14 | Mammography Report ---
BILATERAL DIGITAL SCREENING MAMMOGRAM 3D/2D: 05/04/2021 CLINICAL: Routine screening. Baseline exam. No prior exams were available for comparison. There are scattered fibroglandular elements in both br easts. There is an irregular equal density focal asymmetry with an indistinct margin in the left breast at 1 1 o'clock anterior depth. No other significant masses, calcifications, or other findings are seen in either breast. IMPRESSION: INCOMPLETE: NEEDS ADDITIONAL IMAGING EVALUATION The irregular equal density focal asymmetry in the left breast is indeterminate. Mediolateral and sp ot compression views as well as additional views with possible ultrasound are recommended. This exam was interpreted at Station ID: [id number]. NOTE: For mammograms, a report in lay terms will be sent to the patient. Approximately 15% of breast malignancies will not be visualized mammographically. In the management of a palpable breast mass, a negative mammogram must not discourage biopsy of a clinically suspicious lesion. Electronically Signed By: Gregory Simon M.D. ddp/penrad:05/04/2021 13:13:01 ACR BI-RADS Category 0: Incomplete 3340F PARENCHYMAL PATTERN: (A) - The breast(s) demonstrate(s) scattered fibroglandular densities. BI-RADS CATEGORY: (0) - 0 Mammo and US [id number] Immediate follow-up LATERALITY: (B)
== END 2021-05-04 09:23 | disposition home or self-care (01) ==
LOC: DI.N 09:22
PROVIDERS: ATTEND Internal Medicine
DX: Z12.31 Encounter for screening mammogram for malignant neoplasm of breast (principal); R92.8 Other abnormal and inconclusive findings on diagnostic imaging of breast

== ENCOUNTER 2021-06-30 14:21 | Outpatient (CLI) | payer MEDICARE, OTHER ==
--- NOTE | 2021-07-01 09:35 | MRI Report ---
PROCEDURE: Knee RT W/O INDICATIONS: RIGHT KNEE PAIN TECHNIQUE: Noncontrast sagittal PD fast spin echo and T2 fast spin echo with fat saturation, sagittal 3-D gradie nt sequence with fat saturation; coronal T1 spin echo and PD fast spin echo with fat saturation, and axial PD fast spin echo with fat saturation through the knee. COMPARISON: X-ray right knee, 3 views, 04/23/2021. FINDINGS: Image quality: Excellent. Menisci: The free edge of the posterior horn of the medial meniscus appears irregular with a radial t ear (series 901 image 20) series 701 image 16). In addition, there is complex tear in the peripheral aspect of the posterior horn the medial meniscus (series 501 image 6; Series 701 image 16). The menis jairo root ligaments appear intact. Cruciate ligaments: The anterior and posterior cruciate ligaments appear intact. Medial structures: The medial collateral ligament appears intact. The semimembranosus tendon insert ions and meniscocapsular junction appear intact. Visualized portions of the pes anserinus tendons ap pear normal. No abnormal bursal fluid. Lateral structures: The lateral collateral ligament, long and short heads of the biceps femoris tend on appear intact. The popliteus tendon appears normal. Iliotibial band appears normal. Anterior structures: The quadriceps and patellar tendons appear intact. Patellar alignment is tenisha l. No femoral trochlear dysplasia or ventral trochlear prominence. No edema in the infrapatellar fa t pad. Associated prepatellar soft tissue swelling. Bones and cartilage: No bone marrow contusions or fractures. There is cartilage thinning and fibrill ation, moderate in the medial femorotibial compartment and mild in the lateral femorotibial compartme nt and patellofemoral compartment. Joint space: There is synovitis thickening and moderate knee joint effusion. No Venegas's cyst. Norm al appearing synovial plicae are incidentally noted. IMPRESSION: 1. Irregular free edge with a radial tear and complex peripheral tear of the posterior horn of the me dial meniscus. 2. Moderate cartilage thinning and fibrillation. 3. Synovitis thickening and moderate-sized knee joint effusion. Reviewed by: Ant Thurman MD on 07/01/2021 8:34 AM [facility] Approved by: Ant Thurman MD on 07/01/2021 8:34 AM [facility] Station ID: [id number]
== END 2021-06-30 14:22 | disposition home or self-care (01) ==
LOC: DI 14:21
PROVIDERS: ATTEND Internal Medicine
DX: S83.231A Complex tear of medial meniscus, current injury, right knee, initial encounter (principal); S83.221A Peripheral tear of medial meniscus, current injury, right knee, initial encounter; M94.8X6 Other specified disorders of cartilage, lower leg; M65.861 Other synovitis and tenosynovitis, right lower leg; M25.461 Effusion, right knee

== ENCOUNTER 2021-07-22 06:00 | Outpatient (CLI) | payer MEDICARE, OTHER ==
--- NOTE | 2021-07-22 18:20 | XRAY Report ---
PROCEDURE: Knee 1 View BILAT INDICATIONS: RIGHT KNEE PAIN TECHNIQUE: AP standing view of bilateral knees were obtained. COMPARISON: None. FINDINGS: Bones: No fractures or dislocations. Left worse than right bilateral medial femoral tibial compartm ent joint space narrowing is seen. No suspicious bony lesions. Soft tissues : No suspicious soft tissue calcifications. 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 No fra cture or dislocation. No gross soft tissue abnormality. Reviewed by: Ion Guerrero MD on 07/22/2021 6:18 PM PDT Approved by: Ion Guerrero MD on 07/22/2021 6:18 PM PDT Station ID: [id number]
== END 2021-07-22 23:59 | disposition home or self-care (01) ==
LOC: DI.WOS 06:00
PROVIDERS: ATTEND Orthopaedic Surgery
DX: M17.0 Bilateral primary osteoarthritis of knee (principal)

== ENCOUNTER 2022-03-30 16:10 | Emergency (ER) | payer MEDICARE, OTHER ==
[2022-03-30] MEDS ORDERED: SODIUM CHLORIDE 0.9% 1,000 ML IV STA (16:25)
[2022-03-30] MEDS ORDERED: ONDANSETRON 4 MG/2 ML VIAL IVP STA (16:25)
[2022-03-30] MEDS ORDERED: HYDROmorphone 1 MG/ML CARPUJECT IVP STA (16:33)
--- NOTE | 2022-03-30 16:36 | ED Physician Documentation ---
History of Present Illness - Stated complaint Stated Complaint: ABD PAIN - Chief complaint Chief Complaint: Abd Pain - Additonal information Additional information: 67-year-old female presents to the emergency department for evaluation of right upper quadrant abdominal pain. Symptoms began more than a month ago. She reports that she often feels bloated and has pain in her upper abdomen and right upper quadrant after eating. She has begun to vomit recently and the pain has become more persistent. She has not had fevers. No melena or hematochezia. She is not anticoagulated. Past surgical history x2 Patient is a fair historian Review of Systems Constitutional: reports: Reviewed and negative Cardiac: reports: Reviewed and negative Respiratory: reports: Reviewed and negative GI: reports: Abdominal Pain, Nausea, Vomiting. 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 - Present Medications Home Medications: Ambulatory Orders Medication Instructions Recorded Confirmed amLODIPine [Norvasc] 2.5 mg PO DAILY 12/10/19 03/30/22 Albuterol Sulf [Ventolin Hfa 1 - 2 puffs INH Q4HR PRN #1 inhaler 02/15/21 03/30/22 Inhaler] Doxepin [SINEquan] 25 mg PO QPM 03/30/22 03/30/22 Pantoprazole [Protonix] 40 mg PO DAILY #30 tablet 03/30/22 buPROPion HCL [Bupropion HCl] 75 mg PO DAILY 03/30/22 03/30/22 - Allergies Allergies/Adverse Reactions: Allergies Allergy/AdvReac Type Severity Reaction Status Date / Time methimazole Allergy Unknown Verified 10/07/21 08: tramadol Allergy Anxiety Verified 10/07/21 08:23 - Social History Does the pt smoke?: No Smoking Status: Never smoker PD ED PE NORMAL - General General: Alert and oriented X 3, Well developed/nourished. No: No acute distress (Appears uncomfortable and in pain. Holding her upper abdomen) - HEENT HEENT: Atraumatic, Moist mucous membranes - Neck Neck: Supple, no meningeal sign - Cardiac Cardiac: RRR, No murmur - Respiratory Respiratory: No respiratory distress, Clear bilaterally - Abdomen Abdomen: Normal bowel sounds, Soft. No: Non tender (Tender in the right upper quadrant and epigastrium. Equivocal McBurney's. No tenderness elicited with the lower abdomen) - Back Back: No CVA TTP - Derm Derm: Normal color, Warm and dry - Extremities Extremities: No deformity, No tenderness to palpate, Normal ROM s pain - Neuro Neuro: Alert and oriented X 3 Eye Opening: Spontaneous Motor: Obeys Commands Verbal: Oriented GCS Score: 15 Results - Vitals Vitals: Vital Signs - 24 hr 03/30/22 03/30/22 16:14 18:20 Temperature 37.6 C Heart Rate 99 72 Respiratory 18 22 Rate Blood Pressure 134/84 H 155/96 H O2 Saturation 97 96 Oxygen O2 Source Room air - Labs Labs: Laboratory Tests 03/30/22 03/30/22 03/30/22 16:35 16:35 16:35 WBC 10.7 RBC 5.13 Hgb 14.4 Hct 45.3 MCV 88.3 MCH 28.1 MCHC 31.8 L RDW 15.4 H Plt Count 281 MPV 10.0 Neut # (Auto) 6.0 Lymph # (Auto) 3.4 [place] # (Auto) 1.0 Eos # (Auto) 0.2 Baso # (Auto) 0.1 Absolute Nucleated RBC 0.00 Nucleated RBC % 0.0 Sodium 138 Potassium 3.7 Chloride 103 Carbon Dioxide 21 Anion Gap 14.0 H BUN 16 Creatinine 0.8 Estimated GFR (MDRD) 72 L Glucose 103 H Calcium 10.2 Total Bilirubin 0.6 AST 18 ALT 13 Alkaline Phosphatase 97 Total Protein 8.1 Albumin 4.1 Globulin 4.0 Albumin/Globulin Ratio 1.0 Lipase 36 Urine Color YELLOW Urine Clarity CLEAR Urine pH 6.0 Ur Specific [place] 1.025 Urine Protein NEGATIVE Urine Glucose (UA) NEGATIVE Urine Ketones NEGATIVE Urine Occult Blood MODERATE H Urine Nitrite NEGATIVE Urine Bilirubin NEGATIVE Urine Urobilinogen 0.2 (NORMAL) Ur Leukocyte Esterase TRACE H Urine RBC 6-10 H Urine WBC 6-10 H Ur Squamous Epith Cells MOD Squamous H Urine Bacteria Rare Ur Microscopic Review INDICATED Urine Culture Comments NOT INDICATED - Rads (name of study) ABD US Radiology: See rad report (Per cath lab radiological technologist: Distended gallbladder though patient is n.p.o. CBD not dilated. No stones. No pericholecystic fluid. No gallbladder wall thickening.) CT abd Radiology: Final report received (No acute pathology in the abdomen or pelvis. Small hiatal hernia and patulous distal esophagus with mild wall thickening. Most commonly seen with reflux esophagitis. Indeterminate right adrenal nodule, most commonly as an adenoma. Multiple subcentimeter lesions in the liver too small to characte) PD Medical Decision Making - ED course Complexity details: reviewed results, re-evaluated patient, considered differential, d/w patient, d/w family ED course: 67-year-old female presents emergency department for evaluation of greater than 1 month right upper quadrant and epigastric abdominal pain that is typically worse after eating. She does occasionally vomit. Patient presents concerned that she could have acute cholecystitis. On exam she does have some tenderness in the right upper quadrant and epigastrium with an equivocal Carey's. I did obtain a CBC and electrolytes and per my interpretation there were no acute worrisome findings noted. An abdominal ultrasound was completed that showed no findings to suggest acute cholecystitis. In particular there is no gallbladder wall thickening, pericholecystic fluid or dilation of the CBD or seen stones within the gallbladder itself. Subsequently a CT of the abdomen was completed and it does show findings consistent with acute esophagitis. I suspect she likely has been developing gastritis for quite some time. Here in the emergency department I did administer IV Protonix. I did reevaluate the patient in after she received IV Dilaudid here in the emergency department her symptoms were markedly better and she is tolerating sips of clear liquids. I discussed the CT results with the patient as well as her laboratory studies. She is scheduled to see her PCP in follow-up in 48 hours time. At that time I do recommend she get referred for an EGD for further evaluation of the gastritis/esophagitis. She will be discharged with a prescription for Protonix. She is advised to avoid spicy foods, citrus and caffeinated beverages. We also discussed the usual emergent return precautions for worsening symptoms. Departure - Departure Disposition: 01 Home, Self Care Clinical Impression: Esophagitis Gastritis Qualifiers: Gastritis type: unspecified gastritis Chronicity: acute Gastritis bleeding: without bleeding Qualified Code(s): K29.00 - Acute gastritis without bleeding Instructions: ED PUD Vs Gastritis Follow-Up: Kylee Silver MD [Primary Care Provider] - Prescriptions: Pantoprazole [Protonix] 40 mg PO DAILY #30 tablet Comments: Anthony came to the emergency department because for at least a month you been having some pain in your upper abdomen that is worse after eating. You were concerned that it could be your gallbladder. Your labs today in the emergency department did not show any worrisome findings. We subsequently did a CT scan of your abdomen that showed a small hiatal hernia. However you do have some esophageal wall thickening which is most commonly seen with esophagitis. I suspect the pain in your belly after eating is due to gastritis or inflammation of the lining of the stomach. It is going to be important that you follow closely with Dr. Silver as you should be referred for an EGD to evaluate your esophagus, stomach and upper intestine. In order to treat the gastritis I am starting you on Protonix daily. You should avoid [place], citrus and tomatoes or spicy and acidic foods. Avoid caffeine. You can take the Tums [id number] for acute heartburn. Return to the emergency department if you have worsening symptoms, have any vomiting especially vomiting with blood, or black or bloody stools. I am copying the body of the CT scan results here in your discharge instructions. There were a number of incidental findings that included a fatty liver, a right adrenal nodule most likely an adenoma as well as liver cyst. Please discuss these with Dr. Silver CT RESULTS: PT NAME: ANTHONY ENCINAS MR#: [id number] REG ER/ED AGE: 67 CI DT/TM: 03/30/2210/12/1632 PCP: Kylee Silver MD : 1955 ATT: SEX: F ORD: [place] soila [facility] EXAM: [id number] CT/ABPEW ([id number]) PROCEDURE: ABDOMEN/PELVIS W INDICATIONS: RUQ after eating; pramod? CONTRAST: 100mL Omni 300 TECHNIQUE: After the administration of IV contrast, 5 mm thick sections acquired from the diaphragms to the symphysis. 5 mm thick coronal and sagittal reformats were acquired. For radiation dose reduction, the following was used: automated exposure control, adjustment of mA and/or kV according to patient size. COMPARISON: None. FINDINGS: Image quality: Good Lower chest: Suspected basal scarring/atelectasis, mildly thickened at the left base. A left perifissural nodule is present, measuring 3 to 4 mm. These could be followed in one year with optional chest CT for high-risk patients. Patulous distal esophagus and small hiatal hernia. Solid organs: Subcentimeter lesions are too small to characterize. Liver is otherwise unremarkable. No radiopaque gallstones. No pathologic biliary ductal dilation or pancreatic ductal dilation. No splenomegaly. A right adrenal nodule measuring 1.8 cm is present. Bosniak 1 and 2 renal lesions are present, for which no dedicated follow-up is necessary per 2019 proposed guidelines. No hydronephrosis. Vessels and lymph nodes: The main portal vein is patent. No pathologic adenopath y by size criteria. Bowel and peritoneum: No evidence of bowel obstruction. Appendix appears normal. No pathologic ascites. Body wall: Small fat-containing buckle hernia. Pelvis: Reproductive organs appear physiologic on CT, but are not well evaluated on this modality. Bladder is unremarkable. Bones: Small sclerotic lesions may represent bone islands. No acute abnormality visualized. IMPRESSION: No acute pathology in the abdomen or pelvis. There is a small hiatal hernia and patulous distal esophagus with mild wall thickening, indeterminate but most commonly seen with reflux esophagitis. Consider correlation with endoscopy and/or fluoroscopy. Indeterminate right adrenal nodule, most commonly an adenoma. Multiple subcentimeter lesions in the liver, too small to characterize, possibly cysts. Consider MRI evaluation. Other findings as above. Reviewed by: Mj Marvin MD on 03/30/2022 5:59 PM PST Approved by: Mj Marvin MD on 03/30/2022 5:59 PM PST
[2022-03-30 16:45] LABS: BASOPHILS # (AUTO) 0.1 10^3/uL (0.0-0.1); BASOPHILS % (AUTO) 0.5 %; EOSINOPHILS # (AUTO) 0.2 10^3/uL (0.0-0.7); EOSINOPHILS % (AUTO) 1.5 %; HCT - HEMATOCRIT 45.3 % (37.0-47.0); HGB - HEMOGLOBIN 14.4 g/dL (12.0-16.0); LYMPHOCYTES # (AUTO) 3.4 10^3/uL (1.5-3.5); LYMPHOCYTES % (AUTO) 31.9 %; MEAN CORPUSCULAR HEMOGLOBIN 28.1 pg (27.0-31.0); MEAN CORPUSCULAR HGB CONC 31.8 g/dL (32.0-36.0); MEAN CORPUSCULAR VOLUME 88.3 fL (81.0-99.0); MONOCYTES % (AUTO) 9.4 %; NEUTROPHILS % (AUTO) 56.4 %; PLT - PLATELET COUNT 281 10^3/uL (130-450); RED BLOOD COUNT 5.13 10^6/uL (4.20-5.40); RED CELL DISTRIBUTION WIDTH 15.4 % (12.0-15.0); WHITE BLOOD COUNT 10.7 x10^3/uL (4.8-10.8)
[2022-03-30 16:49] LABS: BILIRUBIN,URINE NEGATIVE (NEGATIVE); GLUCOSE, URINE (UA) NEGATIVE (NEGATIVE); KETONES,URINE (UA) NEGATIVE (NEGATIVE); LEUKOCYTE ESTERASE, URINE TRACE (NEGATIVE); NITRITE,URINE NEGATIVE (NEGATIVE); OCCULT BLOOD,URINE MODERATE (NEGATIVE); PROTEIN,URINE NEGATIVE (NEGATIVE); UROBILINOGEN,URINE 0.2 (NORMAL) E.U./dL (NORMAL)
[2022-03-30 16:50] LABS: CLARITY,URINE CLEAR (CLEAR)
[2022-03-30 16:59] LABS: ALBUMIN 4.1 g/dL (3.2-5.5); BILIRUBIN,TOTAL 0.6 mg/dL (0.2-1.0); CALCIUM 10.2 mg/dL (8.5-10.3); CREATININE 0.8 mg/dL (0.4-1.0); POTASSIUM 3.7 mmol/L (3.5-5.0); TOTAL PROTEIN 8.1 g/dL (6.7-8.2)
[2022-03-30 17:05] LABS: BACTERIA,URINE Rare /HPF (None Seen); SQUAMOUS EPITHELIAL CELL,UR MOD Squamous (<= Few)
[2022-03-30] MEDS ORDERED: iohexoL-300 100 ML VIAL ONE (17:48)
--- NOTE | 2022-03-30 18:01 | CT Report ---
PROCEDURE: ABDOMEN/PELVIS W INDICATIONS: RUQ after eating; pramod? CONTRAST: 100mL Omni 300 TECHNIQUE: After the administration of IV contrast, 5 mm thick sections acquired from the diaphragms to the symp hysis. 5 mm thick coronal and sagittal reformats were acquired. For radiation dose reduction, the f ollowing was used: automated exposure control, adjustment of mA and/or kV according to patient size. COMPARISON: None. FINDINGS: Image quality: Good Lower chest: Suspected basal scarring/atelectasis, mildly thickened at the left base. A left perifissural nodule is present, measuring 3 to 4 mm. These could be followed in one year with optional chest CT for high-risk patients. Patulous distal esophagus and small hiatal hernia. Solid organs: Subcentimeter lesions are too small to characterize. Liver is otherwise unremarkable. N o radiopaque gallstones. No pathologic biliary ductal dilation or pancreatic ductal dilation. No sple nomegaly. A right adrenal nodule measuring 1.8 cm is present. Bosniak 1 and 2 renal lesions are prese nt, for which no dedicated follow-up is necessary per 2019 proposed guidelines. No hydronephrosis. Vessels and lymph nodes: The main portal vein is patent. No pathologic adenopathy by size criteria. Bowel and peritoneum: No evidence of bowel obstruction. Appendix appears normal. No pathologic ascite s. Body wall: Small fat-containing buckle hernia. Pelvis: Reproductive organs appear physiologic on CT, but are not well evaluated on this modality. Bl adder is unremarkable. Bones: Small sclerotic lesions may represent bone islands. No acute abnormality visualized. IMPRESSION: No acute pathology in the abdomen or pelvis. There is a small hiatal hernia and patulous distal esoph alecia with mild wall thickening, indeterminate but most commonly seen with reflux esophagitis. Conside r correlation with endoscopy and/or fluoroscopy. Indeterminate right adrenal nodule, most commonly an adenoma. Multiple subcentimeter lesions in the l iver, too small to characterize, possibly cysts. Consider MRI evaluation. Other findings as above. Reviewed by: Mj Marvin MD on 03/30/2022 5:59 PM PST Approved by: Mj Marvin MD on 03/30/2022 5:59 PM PST Station ID: [id number]
[2022-03-30] MEDS ORDERED: PANTOPRAZOLE 40 MG VIAL IV STA (18:10)
[2022-03-30] MEDS ORDERED: iohexoL-300 100 ML VIAL IVP ONE (18:22)
--- NOTE | 2022-03-30 19:11 | Ultrasound Report ---
PROCEDURE: Abdomen Limited INDICATIONS: RUQ pain after eting TECHNIQUE: Real-time focused scanning was performed of the abdomen, with image documentation. COMPARISON: Same-day CT FINDINGS: Liver measures 16 cm. Echotexture is slightly coarse and increased. Overall flow is hepato pedal in the main portal vein. The gallbladder is distended. No inflammatory changes. CBD measures 4 mm. Pancreatic tail obscured. Pancreatic head is unremarkable. Right kidney measures 10 cm. Overall exam is limited. IMPRESSION: Overall Limited exam due to large body habitus and bowel gas. No acute sonographic abnormality. Coars e and echogenic liver may represent fibrofatty infiltration. The gallbladder is distended, without ac shlomo inflammatory changes on ultrasound. Consider nuclear medicine HIDA study to further evaluate the gallbladder if necessary. Reviewed by: Mj Marvin MD on 03/30/2022 7:09 PM PST Approved by: Mj Marvin MD on 03/30/2022 7:09 PM PST Station ID: [id number]
[2022-03-30] MEDS ORDERED: LIDOCAINE VISCOUS 2% 15 ML ORAL SYRINGE MM STA (19:15)
[2022-03-30 19:30] VITALS: BP 140/78
== END 2022-03-30 19:30 | disposition home or self-care (01) ==
LOC: ED 16:10
DX: K29.00 Acute gastritis without bleeding (principal)
CPT/HCPCS: 36415; 74177; 76705; 80053; 81001; 83690; 85025; 96361; 96374; 96375; 99284; J1170; Q9967; 81003; 87086

== ENCOUNTER 2022-08-05 08:26 | Day surgery (SDC) | payer MEDICARE, OTHER ==
[2022-08-05] MEDS ORDERED: LACTATED RINGERS 1,000 ML IV ONE ×2 (08:28→10:26)
[2022-08-05] MEDS ORDERED: PROPOFOL 500 MG/50 ML 500 MG/50 ML VIAL ONE ×2 (08:49→09:52)
[2022-08-05] MEDS ORDERED: LIDOCAINE-PF 2% 10 ML AMP SUBQ ONE (08:49)
--- NOTE | 2022-08-05 09:21 | HISTORY & PHYSICAL EXAMINATION ---
Chief Complaint - Chief Complaint Chief Complaint: here for endoscopy History of Present Illness - History Obtained From Records Reviewed: yes History obtained from: pt Exam Limitations: none - History of Present Illness HPI Comment/Other: history stomach pain and ct scan showing possible thickened distal esophagus. no prior colon cancer screening. no problems now. she continues on protonix. 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 Cardiovascular: reports: Cardiac catheterization HEENT: reports: Cataracts Meds/Allgy - Home Medications Home Medications: Ambulatory Orders Medication Instructions Recorded Confirmed amLODIPine [Norvasc] 2.5 mg PO DAILY 12/10/19 08/04/22 Albuterol Sulf [Ventolin Hfa 1 - 2 puffs INH Q4HR PRN #1 inhaler 02/15/21 08/04/22 Inhaler] Doxepin [SINEquan] 25 mg PO QPM 03/30/22 08/04/22 Pantoprazole [Protonix] 40 mg PO DAILY #30 tablet 03/30/22 08/04/22 buPROPion HCL [Bupropion HCl] 75 mg PO DAILY 03/30/22 08/04/22 Alprazolam [Xanax] 0.25 mg PO DAILY PRN 08/04/22 08/05/22 Gabapentin [Neurontin] 600 mg PO DAILY PRN 08/04/22 08/04/22 - Allergies Allergies/Adverse Reactions: Allergies Allergy/AdvReac Type Severity Reaction Status Date / Time methimazole Allergy Unknown Verified 10/07/21 08:23 tramadol Allergy Anxiety Verified 10/07/21 08:23 Review of Systems - Other Findings Other Findings: 10 pt ros as above otherwise unremarkable Exam - Vital Signs Reviewed Vital Signs: Yes Vital Signs: Vital Signs x48h Temp Pulse Resp BP Pulse Ox O2 Flow Rate 08/05/22 08:38 36.0 C L 125 H 16 102/86 H 95 0 - Physical Exam General Appearance: positive: No acute distress, Alert Eyes Bilateral: positive: PERRL, EOMI ENT: positive: No signs of dehydration Neck: positive: No JVD, Trachea midline Respiratory: positive: No respiratory distress Cardiovascular: positive: Regular rate & rhythm Abdomen: positive: Non-tender, No distention Neurologic/Psychiatric: positive: Oriented x3 Conclusion/Plan - Problem List (1) Colon cancer screening Conclusion/Plan: plan colonoscopy and egd for possible abnormal esophagus by ct scan
--- NOTE | 2022-08-05 09:27 | ANESTHESIA ---
Pre-Anesthesia VS, & Labs - Diagnosis screening, GERD - Procedure EGD + colonoscopy Vital Signs: Temp Pulse Resp BP Pulse Ox O2 Flow Rate 36.0 C L 125 H 16 102/86 H 95 0 08/05/22 08:38 08/05/22 08:38 08/05/22 08:38 08/05/22 08:38 08/05/22 08:38 08/05/22 08:38 Height: 5 ft 6 in Weight (kg): 85 kg Body Mass Index: 30.2 BMI Classification: Obese - NPO >8 hours - Is Patient ?: No - Lab Results Lab results reviewed: Yes Home Medications and Allergies Home Medications: Ambulatory Orders Alprazolam [Xanax] 0.25 mg PO DAILY PRN 08/04/22 Gabapentin [Neurontin] 600 mg PO DAILY PRN 08/04/22 amLODIPine [Norvasc] 2.5 mg PO DAILY 12/10/19 Doxepin [SINEquan] 25 mg PO QPM 03/30/22 buPROPion HCL [Bupropion HCl] 75 mg PO DAILY 03/30/22 Alprazolam [Xanax] 0.25 mg PO DAILY PRN 08/04/22 Gabapentin [Neurontin] 600 mg PO DAILY PRN 08/04/22 Allergies/Adverse Reactions: Allergies Allergy/AdvReac Type Severity Reaction Status Date / Time methimazole Allergy Unknown Verified 10/07/21 08:23 tramadol Allergy Anxiety Verified 10/07/21 08:23 Anes History & Medical History - Anesthetic History Anesthesia Complications: reports: No previous complications Family history of Anesthesia Complications: Denies Family history of Malignant Hyperthermia: Denies - Medical History Cardiovascular: reports: [place], Murmur Pulmonary: reports: Asthma Gastrointestinal: reports: GERD, Other Urinary: reports: None Neuro: reports: None Musculoskeletal: reports: None Endocrine/Autoimmune: reports: HyPERthyroidism Blood Disorders: reports: None Skin: reports: None Smoking Status: Never smoker - Surgical History Eyes Ears Nose Throat (EENT): reports: Cataracts Cardiothoracic: reports: Cardiac catheterization Urologic: reports: Nephrectomy, Penile implant Gynecologic: reports: section Exam General: Alert, Oriented x3, Cooperative Dental: WNL Mouth Openin Fingerbreadth Neck Mobility: Normal Mallampati classification: II Thyromental Distance: 4-6 cm Respiratory: Lungs clear Cardiovascular: Other (murmur) Plan Anesthesia Type: MAC Consent for Procedure(s) Verified and Reviewed: Yes Code Status: Attempt Resuscitation ASA classification: 3-Severe systemic disease Is this case an emergency?: No
[2022-08-05] MEDS ORDERED: fentaNYL 100 MCG/2 ML VIAL IVP PRN (09:28)
[2022-08-05] MEDS ORDERED: ePHEDrine 50 MG/ML VIAL IVP PRN (09:28)
[2022-08-05] MEDS ORDERED: HYDROmorphone 0.5 MG/0.5 ML SYRINGE IVP PRN (09:28)
[2022-08-05] MEDS ORDERED: ONDANSETRON 4 MG/2 ML VIAL IVP PRN (09:28)
[2022-08-05] MEDS ORDERED: ATROPINE ABBOJECT 1 MG/10 ML SYRINGE IVP PRN (09:28)
[2022-08-05] MEDS ORDERED: NALOXONE 0.4 MG/ML VIAL IVP PRN (09:28)
[2022-08-05] MEDS ORDERED: MIDAZOLAM 2 MG/2 ML VIAL ONE (09:29)
[2022-08-05] MEDS ORDERED: LACTATED RINGERS 1,000 ML IV SCH (10:00)
[2022-08-05 11:08] VITALS: BP 110/69
--- NOTE | 2022-08-05 14:05 | ANESTHESIA POST OP EVALUATION ---
Anesthesia Post Eval - Post Anesthesia Eval Vitals: Last Vital Signs Temp 36.0 C L 08/05/22 11:03 Pulse 84 08/05/22 11:03 Resp 12 08/05/22 11:03 BP 110/69 08/05/22 11:03 Pulse Ox 100 08/05/22 11:03 O2 Flow Rate 0 08/05/22 08:38 CV Function Including HR & BP: Stable Pain Control: Satisfactory Nausea & Vomiting: Negative Mental Status: Baseline Respiratory Status: Airway Patent Hydration Status: Satisfactory Anesthesia Complications: None
== END 2022-08-05 08:27 | disposition home or self-care (01) ==
LOC: SDS 08:26
PROVIDERS: ATTEND Surgery
PROC: 0DB68ZX Excision of Stomach, Via Natural or Artificial Opening Endoscopic, Diagnostic (ICD-10-PCS; 2022-08-05)
PROC: 0DBK8ZZ Excision of Ascending Colon, Via Natural or Artificial Opening Endoscopic (ICD-10-PCS; principal; 2022-08-05 09:30)
PROC: 0DBH8ZZ Excision of Cecum, Via Natural or Artificial Opening Endoscopic (ICD-10-PCS; 2022-08-05 09:30)
DX: Z12.11 Encounter for screening for malignant neoplasm of colon (principal); D12.2 Benign neoplasm of ascending colon; K63.5 Polyp of colon; K21.9 Gastro-esophageal reflux disease without esophagitis; K29.50 Unspecified chronic gastritis without bleeding; R10.13 Epigastric pain; E66.9 Obesity, unspecified; Z68.30 Body mass index [BMI] 30.0-30.9, adult; J45.909 Unspecified asthma, uncomplicated; R01.1 Cardiac murmur, unspecified
CPT/HCPCS: 43239; 45380; 45385; 93005; J7120